=== PATIENT | female | born 1980 | race Hispanic/Latino ===

== ENCOUNTER 2019-05-19 19:09 | Emergency (ER) | payer BC ==
[2019-05-19] MEDS ORDERED: methylPREDNISolone Sod Succ/PF 125 MG/2 ML VIAL ONE (19:39)
[2019-05-19] MEDS ORDERED: diphenhydrAMINE 25 MG CAP ONE (19:39)
== END 2019-05-19 20:37 | disposition home or self-care (01) ==
LOC: NAV ERS 19:09
DX: T78.40XA Allergy, unspecified, initial encounter (principal)
CPT/HCPCS: 96372; 99283; J2930; Q0163